=== PATIENT | female | born 1990 | race Two or more races ===

== ENCOUNTER 2023-09-29 16:13 | Emergency (ER) | payer OTHER ==
[2023-09-29] MEDS ORDERED: Ketorolac Tromethamine 30 MG (1 mL) VIAL ONE (16:44)
== END 2023-09-29 17:25 | disposition home or self-care (01) ==
LOC: CSHERS 16:13
DX: J02.9 Acute pharyngitis, unspecified (principal); R68.84 Jaw pain; F17.290 Nicotine dependence, other tobacco product, uncomplicated
CPT/HCPCS: 87081; 87430; 96372; 99283; J1885